=== PATIENT | male | born 1980 ===

== ENCOUNTER 2019-11-16 13:25 | Emergency (ER) | payer BC ==
[2019-11-16] MEDS ORDERED: Aspirin 81 MG Tab.Chew PO ONE (13:40)
--- NOTE | 2019-11-16 14:10 | EDM.PDOC ---
ED HPI GENERAL MEDICAL PROBLEM - General Chief Complaint: General Stated Complaint: SHAKY Time Seen by Provider: 11/16/19 13:43 Source of Information: Reports: Patient History Limitations: Reports: No Limitations - History of Present Illness INITIAL COMMENTS - FREE TEXT/NARRATIVE: This patient is a 39 year old male that presents to the ER. Patent reports he was driving with from home passing through. He reports he began having a "lump" sensation in his central upper chest and generally not feeling well. He reports feeling fartun and hungry. Patient reports he had a cardiac cath done in May in [facility] without stent. He is a smoker. Takes Plavix. Patient reports when I saw him in the ER, he is pain free. No "lump". He said when he had it in route, it was a 3/10. Denies shortness of breath, nausea. He reports this did not feel like his "cardiac event" in May. Then he had chest pain, arm pain, nausea, and jaw pain. Onset: Today Onset Date: 11/16/19 Onset Time: 13:00 Duration: Hour(s): (1) Location: Reports: Chest Quality: Reports: Other ("lump") Severity: Mild Improves with: Reports: None Worsens with: Reports: None Associated Symptoms: Reports: Chest Pain, Malaise, Other ("hungry, shaky"). Denies: Confusion, Cough, cough w sputum, Diaphoresis, Fever/Chills, Headaches, Loss of Appetite, Nausea/Vomiting, Rash, Seizure, Shortness of Breath, Syncope, Weakness - Related Data Allergies Allergy/AdvReac Type Severity Reaction Status Date / Time No Known Allergies Allergy Verified 11/16/19 13:46 Home Meds: Home Meds Allopurinol [Zyloprim] 100 mg PO DAILY 11/16/19 [History] Aspirin [Halfprin] 81 mg PO DAILY 11/16/19 [History] Clopidogrel [Plavix] 75 mg PO DAILY 11/16/19 [History] Metoprolol Succinate [Toprol XL] 25 mg PO DAILY 11/16/19 [History] Rosuvastatin Calcium [Crestor] 40 mg PO DAILY 11/16/19 [History] ED ROS GENERAL - Review of Systems Review Of Systems: See Below Constitutional: Reports: Malaise, Other ("hungry, shaky") HEENT: Reports: No Symptoms Respiratory: Reports: No Symptoms. Denies: Shortness of Breath Cardiovascular: Reports: Chest Pain ("lump"). Denies: Dyspnea on Exertion, Edema, Lightheadedness, Palpitations, Syncope Endocrine: Reports: No Symptoms GI/Abdominal: Reports: No Symptoms. Denies: Nausea, Vomiting : Reports: No Symptoms Musculoskeletal: Reports: No Symptoms Skin: Reports: No Symptoms Neurological: Reports: No Symptoms Psychiatric: Reports: No Symptoms Hematologic/Lymphatic: Reports: No Symptoms Immunologic: Reports: No Symptoms ED EXAM, GENERAL - Physical Exam Exam: See Below Exam Limited By: No Limitations General Appearance: Alert, WD/WN, No Apparent Distress Eye Exam: Bilateral Eye: Normal Inspection, PERRL Ears: Normal External Exam, Normal Canal, Hearing Grossly Normal, Normal TMs Ear Exam: Bilateral Ear: Auricle Normal, Canal Normal, TM normal Nose: Normal Inspection, Normal Mucosa, No Blood Throat/Mouth: Normal Inspection, Normal Lips, Normal Teeth, Normal Gums, Normal Oropharynx, Normal Voice, No Airway Compromise Head: Atraumatic, Normocephalic Neck: Normal Inspection, Supple, Non-Tender, Full Range of Motion Respiratory/Chest: No Respiratory Distress, Lungs Clear, Normal Breath Sounds, No Accessory Muscle Use, Chest Non-Tender Cardiovascular: Normal Peripheral Pulses, Regular Rate, Rhythm, No Edema, No Gallop, No JVD, No Murmur, No Rub Peripheral Pulses: 2+: Radial (L), Radial (R), Posterior Tibial (L), Posterior Tibial (R) GI/Abdominal: Soft, Non-Tender Back Exam: Normal Inspection, Full Range of Motion Extremities: Normal Inspection, Normal Range of Motion, Non-Tender, No Pedal Edema, Normal Capillary Refill Neurological: Alert, Oriented, Normal Cognition, Normal Gait, No Motor/Sensory Deficits Psychiatric: Normal Affect, Normal Mood Skin Exam: Warm, Dry, Intact, Normal Color, No Rash Lymphatic: No Adenopathy EKG INTERPRETATION EKG Date: 11/16/19 Time: 13:28 Rhythm: NSR Rate (Beats/Min): 70 ST-T: Normal Comparison: NA - No Prior EKG Course - Vital Signs Last Recorded V/S: Last Vital Signs Temp 99 F 11/16/19 13:58 Pulse 73 11/16/19 13:58 Resp 16 11/16/19 13:58 BP 148/88 H 11/16/19 13:58 Pulse Ox 99 11/16/19 13:58 - Orders/Labs/Meds Meds: Medications Discontinued Medications Generic Name Dose Route Start Last Admin Trade Name Júnior PRN Reason Stop Dose Admin Aspirin 324 mg 11/16/19 13:40 11/16/19 13:40 Aspirin PO 11/16/19 13:41 324 mg ONETIME ONE Administration - Re-Assessments/Exams Free Text/Narrative Re-Assessment/Exam: 11/16/19 13:40 I called and spoke to Irineo Shah to get results of cardiac cath. Reported nonobstructive disease, risk factor management. 11/16/19 14:00 The patient reports after getting to the ER that he no longer has a "lump" in his chest. He reports that he feels fine and he just needs to go eat. He reports he just became anxious and hungry. I educated the patient about needing to obtain Troponin labs, and further evaluation. I spent a while with this patient educating about how an EKG is not the only test to be done. I explained that if he leaves, he could , or even drop on the sidewalk as soon as he leaves. He reports that he understands the risks. He reports that he wants to leave. He reports he feels fine and if it comes back, he will go to his hospital at home. The patient also was denied access into the hospital due to COVID 19 visitor restrictions. The RN told me the got mad, yelling on phone, and yelling at patient to leave the ER right now, per RN. I will discharge this patient AMA. He is aware of the risks. He has refused every test except an EKG. Departure - Departure Time of Disposition: 14:09 Disposition: Against Medical Advice 07 Condition: Undetermined Clinical Impression: Chest pain Qualifiers: Chest pain type: unspecified Qualified Code(s): R07.9 - Chest pain, unspecified - Discharge Information *PRESCRIPTION DRUG MONITORING PROGRAM REVIEWED*: Not Applicable *COPY OF PRESCRIPTION DRUG MONITORING REPORT IN PATIENT VIMAL: Not Applicable Instructions: Coronary Artery Disease, Male, Nonspecific Chest Pain, Adult Forms: ED Department Discharge Additional Instructions: PLEASE RETURN OR GO TO NEAREST ER FOR ANY CONCERNS OR YOU CHANGE YOUR MIND Sepsis Event Note - Evaluation Sepsis Screening Result: No Definite Risk - Focused Exam Vital Signs: Vital Signs Temp Pulse Resp BP Pulse Ox 11/16/19 13:58 99 F 73 16 148/88 H 99 11/16/19 13:43 98.9 F 71 16 151/77 H 99 11/16/19 13:28 98.7 F 90 18 153/90 H 100 Date Exam was Performed: 11/16/19 Time Exam was Performed: 14:10 - Assessment/Plan Plan: PLEASE SEE RN NOTE FOR PFSH
== END 2019-11-16 14:10 | disposition left against medical advice (07) ==
LOC: CC.ED 13:25
DX: R07.9 Chest pain, unspecified (principal); Z79.82 Long term (current) use of aspirin; Z79.899 Other long term (current) drug therapy; Z79.02 Long term (current) use of antithrombotics/antiplatelets
CPT/HCPCS: 93005; 99284-25; A9270-GY